=== PATIENT | female | born 1985 | race Caucasian/White ===

== ENCOUNTER 2017-06-17 14:05 | Emergency (ER) | payer OTHER ==
[~2017-06-17] VITALS: Ht 149.9 cm; Wt 68.0 kg
[~2017-06-17 14:05] MED LIST: NOHOMEMEDICATIONS; TOBREX3.5 GM OP
[2017-06-17] MEDS ORDERED: VENTOLIN HFA 1818 GM INH (15:24)
[2017-06-17] MEDS ORDERED: ZPAK PO (15:24)
[2017-06-17 15:32] VITALS: BP 121/81
== END 2017-06-17 15:33 | disposition home or self-care (01) ==
LOC: M.ERS 14:05
DX: J40 Bronchitis, not specified as acute or chronic (principal); J03.90 Acute tonsillitis, unspecified; F17.200 Nicotine dependence, unspecified, uncomplicated; Z88.5 Allergy status to narcotic agent